=== PATIENT | female | born 1995 | race Caucasian/White ===

== ENCOUNTER → 2019-03-19 15:24 | Outpatient (CLI) | payer BC, SELFPAY ==
[2019-03-19 18:29] LABS: Chlamydia Trachomatis by PCR Negative (Negative); Neisserai gonorrhoeae by PCR Negative (Negative); Probe Check PASS; Sample Adequacy Control PASS; Specimen Processing Control PASS
[2019-03-26 10:47] LABS: HPV Reflexed? NOT INDICATED
== END ==
PROVIDERS: Visit Provider Obstetrics & Gynecology
DX: Z12.4 Encounter for screening for malignant neoplasm of cervix (principal); Z11.3 Encounter for screening for infections with a predominantly sexual mode of transmission
CPT/HCPCS: 87491; 87591; 88175; G0145

== ENCOUNTER → 2020-06-18 11:10 | Outpatient (CLI) | payer BC, SELFPAY ==
[2020-06-18 14:08] LABS: AST(SGOT) 11 U/L (15-37); Alanine Aminotransfer ALT/SGPT 19 U/L (13-56); Albumin, Serum 3.5 g/dL (3.2-5.0); Alkaline Phosphatase 40 U/L (45-117); Bilirubin, Direct 0.14 mg/dL (0.00-0.30); Globulin 4.1 g/dL (2.2-4.2); Protein, Total 7.6 g/dL (6.4-8.2)
[2020-06-18 15:07] LABS: HIV - WCH Non-Reactive (Nonreactive); Hepatitis B Surface Antibody Non-Reactive; Hepatitis C Antibody Non-Reactive (Nonreactive)
[2020-06-18 16:55] LABS: Neisserai gonorrhoeae by PCR Negative (Negative); Probe Check PASS
[2020-06-18 18:35] LABS: Chlamydia Trachomatis by PCR Negative (Negative); Sample Adequacy Control PASS; Specimen Processing Control PASS
[2020-06-25 11:05] LABS: Rapid Plasmin Reagin (RPR) NONREACTIVE (NONREACTIVE)
== END ==
PROVIDERS: Visit Provider Obstetrics & Gynecology
DX: Z11.3 Encounter for screening for infections with a predominantly sexual mode of transmission (principal); Z13.818 Encounter for screening for other digestive system disorders
CPT/HCPCS: 36415; 80076; 86592; 86703; 86706; 86803; 87491; 87591